=== PATIENT | male | born 1940 | race Caucasian/White ===

== ENCOUNTER → 2016-09-28 | Outpatient (CLI) | payer MEDICARE ==
[2016-09-28 15:45] LABS: Hepatitis B Surface Ag Index 0.08
[2016-09-28 15:51] LABS: Hepatitis B Core IgM Index 0.03
[2016-09-28 16:03] LABS: Hepatitis C Virus IgG Index 0.02
[2016-09-28 16:06] LABS: Hepatitis C Virus IgG Ab Negative (Negative)
== END | disposition home or self-care (01) ==
LOC: LABWHC1 14:40
PROVIDERS: ATTEND Nurse Practitioner Family
DX: N18.6 End stage renal disease (principal); R53.83 Other fatigue
CPT/HCPCS: 36415; 80074